=== PATIENT | male | born 1990 | race Caucasian/White ===

== ENCOUNTER 2020-08-06 02:15 | Inpatient (IN) ==
[2020-08-06] MEDS ORDERED: LORazepam 2 mg VIAL 1 ml IV PUSH ONE (02:42)
[2020-08-06] MEDS ORDERED: Lorazepam PYXIS KEY PRN (02:42)
[2020-08-06 03:03] LABS: ABS Basophils 0.1 10^3/ul (0-0.2); ABS Monocytes 1.5 10^3/ul (0-0.8); ABS Neutrophils 25.7 10^3/ul (1.5-7.7); Hematocrit 44 % (42-52); Hemoglobin 16.1 g/dL (14.0-18.0); Lymphocyte % 6.8 %; Mean Corpuscular HGB Conc 36 g/dL (31-36); Mean Corpuscular Hemoglobin 33 pg (27-31); Mean Corpuscular Volume 90 fL (80-94); Platelet Count 411 10^3/uL (150-450); Red Cell Distribution Width 14 % (10-15); White Blood Count 29.2 10^3/uL (3.5-10.8)
[2020-08-06] MEDS: NS 0.9% 1000 ml BAG 2,000 ML IV ONE (03:03)
[2020-08-06 03:37] LABS: ALT 23 U/L (7-52); AST 25 U/L (13-39); Acetaminophen < 15 mcg/mL; Albumin 4.1 g/dL (3.2-5.2); Alcohol, S 311 mg/dL (<10); Alkaline Phosphatase 127 U/L (34-104); Anion Gap 20 mmol/L (2-11); BUN/Creatinine Ratio 19.8 (8-20); Blood Urea Nitrogen 16 mg/dL (6-24); CO2 Carbon Dioxide 22 mmol/L (22-32); Calcium 9.1 mg/dL (8.6-10.3); Chloride 95 mmol/L (101-111); EGFR African American 133.6 (>60); EGFR Non-African American 110.4 (>60); Glucose 119 mg/dL (70-100); Potassium 4.1 mmol/L (3.5-5.0); Salicylate < 2.50 mg/dL (<30); Sodium 137 mmol/L (135-145); Total Protein 8.1 g/dL (6.4-8.9)
[2020-08-06 03:53] LABS: TSH Ultra Thyroid Stim Horm 1.93 mcIU/mL (0.34-5.60)
[2020-08-06] MEDS ORDERED: Clindamycin 600 MG/D5W BAG 600 MG/50 ML BAG IV ONE (03:57)
[2020-08-06] MEDS ORDERED: metroNIDAZOLE IV 500 MG/100ML 500 MG/100 ML BAG IVPB SCH (04:00)
[2020-08-06] MEDS ORDERED: Thiamine 100 MG/ML 2 ml VIAL (200 mg) IM ONE (04:01)
[2020-08-06] MEDS ORDERED: Pantoprazole VIAL 40 MG VIAL IV ONE (05:06)
[2020-08-06 07:02] LABS: HIV 4th Generation Nonreactive (Nonreactive)
[2020-08-06 07:17] LABS: Folate 6.81 ng/mL (>3.99)
[2020-08-06] MEDS: NS 0.9% 1000 ml BAG 1,000 ML IV SCH ×2 (09:18→21:25)
[2020-08-06 10:02] LABS: Urine Appearance Clear; Urine Bilirubin Negative (Negative); Urine Blood Negative (Negative); Urine Color Yellow; Urine Glucose Negative (Negative); Urine Ketones Trace (Negative); Urine Nitrite Negative (Negative); Urine Protein 1+(30 mg/dL) (Negative); Urine Urobilinogen Negative (Negative)
[2020-08-06] MEDS: Nicotine PATCH 21 MG/24 HR PATCH TRANSDERM SCH (10:06)
[2020-08-06 10:13] LABS: Urine Benzodiazepine Screen None Detected (None Detect); Urine Cannabinoids Screen Presumptive Positive (None Detect); Urine Opiates Screen None Detected (None Detect)
[2020-08-06 10:27] LABS: Hepatitis B Surface Antigen Nonreactive (Nonreactive)
[2020-08-06 10:29] LABS: Urine Bacteria Absent (Absent); Urine Red Blood Cell Trace(0-2/hpf) (Absent); Urine Squamous Epithelial Cell Present (Absent); Urine White Blood Cell Trace(0-5/hpf) (Absent)
[2020-08-06 10:32] LABS: Hepatitis A Ab IgM Negative (Negative)
[2020-08-06 10:33] LABS: Hepatitis B Core IgM Nonreactive (Nonreactive)
[2020-08-06] MEDS: Multivitamins/Minerals TAB PO SCH (12:13)
[2020-08-06] MEDS: Ondansetron 4 mg VIAL 2 MG/ML 2 ml VIAL IV PRN ×3 (12:13→20:08)
[2020-08-06] MEDS: Clindamycin 600 MG/D5W BAG 600 MG/50 ML BAG IV SCH ×2 (12:42→21:25)
[2020-08-06] MEDS: Buprenorp/Nalox 4-1 MG FILM SL FILM SCH ×2 (15:04→20:08)
[2020-08-06 15:52] LABS: Hepatitis C Antibody Reactive (Negative)
[2020-08-06] MEDS: Pantoprazole VIAL 40 MG VIAL IV SCH (20:08)
[2020-08-07] MEDS: Clindamycin 600 MG/D5W BAG 600 MG/50 ML BAG IV SCH ×3 (06:02→20:05)
[2020-08-07] MEDS: Buprenorp/Nalox 4-1 MG FILM SL FILM SCH ×3 (06:02→20:16)
[2020-08-07 06:30] LABS: ABS Lymphocytes 2.5 10^3/ul (1.0-4.8); ABS Neutrophils 7.1 10^3/ul (1.5-7.7); Eosinophil % 0.4 %; Hematocrit 40 % (42-52); Hemoglobin 13.7 g/dL (14.0-18.0); Lymphocyte % 23.4 %; Mean Corpuscular HGB Conc 34 g/dL (31-36); Mean Corpuscular Hemoglobin 31 pg (27-31); Mean Corpuscular Volume 92 fL (80-94); Nucleated Red Blood Cells % 0.1; Platelet Count 238 10^3/uL (150-450); Red Cell Distribution Width 14 % (10-15); White Blood Count 10.7 10^3/uL (3.5-10.8)
[2020-08-07 06:46] LABS: Albumin 3.5 g/dL (3.2-5.2); Albumin/Globulin Ratio 1.1 (1-3); BUN/Creatinine Ratio 19.7 (8-20); Calcium 8.8 mg/dL (8.6-10.3); EGFR African American 143.8 (>60); EGFR Non-African American 118.9 (>60); Globulin 3.3 g/dL (2-4); Potassium 3.8 mmol/L (3.5-5.0); Total Bilirubin 0.9 mg/dL (0.2-1.0); Total Protein 6.8 g/dL (6.4-8.9)
[2020-08-07] MEDS: Nicotine PATCH 21 MG/24 HR PATCH TRANSDERM SCH (08:40)
[2020-08-07] MEDS: Multivitamins/Minerals TAB PO SCH (08:41)
[2020-08-07] MEDS: NS 0.9% 1000 ml BAG 1,000 ML IV SCH ×2 (08:41→21:04)
[2020-08-07] MEDS: Ondansetron 4 mg VIAL 2 MG/ML 2 ml VIAL IV PRN ×2 (08:41→13:46)
[2020-08-07] MEDS: Pantoprazole VIAL 40 MG VIAL IV SCH (20:05)
[2020-08-08] MEDS: Clindamycin 600 MG/D5W BAG 600 MG/50 ML BAG IV SCH ×3 (04:23→21:14)
[2020-08-08] MEDS: Buprenorp/Nalox 4-1 MG FILM SL FILM SCH ×3 (06:09→21:15)
[2020-08-08 06:32] LABS: ABS Eosinophils 0.1 10^3/ul (0-0.6); ABS Lymphocytes 2.2 10^3/ul (1.0-4.8); ABS Monocytes 0.7 10^3/ul (0-0.8); ABS Neutrophils 5.1 10^3/ul (1.5-7.7); Eosinophil % 1.6 %; Hematocrit 37 % (42-52); Hemoglobin 12.8 g/dL (14.0-18.0); Lymphocyte % 26.6 %; Mean Corpuscular HGB Conc 34 g/dL (31-36); Mean Corpuscular Hemoglobin 32 pg (27-31); Mean Corpuscular Volume 92 fL (80-94); Mean Platelet Volume 7.4 fL (7.4-10.4); Platelet Count 199 10^3/uL (150-450); Red Blood Count 4.06 10^6 /uL (4.18-5.48); Red Cell Distribution Width 14 % (10-15); White Blood Count 8.1 10^3/uL (3.5-10.8)
[2020-08-08 06:50] LABS: Albumin 3.5 g/dL (3.2-5.2); Albumin/Globulin Ratio 1.1 (1-3); BUN/Creatinine Ratio 15.1 (8-20); Calcium 8.7 mg/dL (8.6-10.3); EGFR African American 150.7 (>60); EGFR Non-African American 124.5 (>60); Globulin 3.2 g/dL (2-4); Potassium 3.7 mmol/L (3.5-5.0); Total Bilirubin 0.9 mg/dL (0.2-1.0); Total Protein 6.7 g/dL (6.4-8.9)
[2020-08-08] MEDS: Nicotine PATCH 21 MG/24 HR PATCH TRANSDERM SCH (09:07)
[2020-08-08] MEDS: Multivitamins/Minerals TAB PO SCH (09:08)
[2020-08-08] MEDS: NS 0.9% 1000 ml BAG 1,000 ML IV SCH ×2 (11:37→23:18)
[2020-08-08] MEDS: Pantoprazole VIAL 40 MG VIAL IV SCH (21:14)
[2020-08-09] MEDS: Nicotine PATCH 21 MG/24 HR PATCH TRANSDERM SCH ×2 (04:16→07:07)
[2020-08-09] MEDS: Clindamycin 600 MG/D5W BAG 600 MG/50 ML BAG IV SCH ×3 (05:17→19:51)
[2020-08-09 05:49] LABS: ABS Eosinophils 0.2 10^3/ul (0-0.6); ABS Lymphocytes 2.2 10^3/ul (1.0-4.8); ABS Monocytes 0.7 10^3/ul (0-0.8); Eosinophil % 1.9 %; Hematocrit 38 % (42-52); Hemoglobin 13.1 g/dL (14.0-18.0); Lymphocyte % 24.6 %; Mean Corpuscular HGB Conc 35 g/dL (31-36); Mean Corpuscular Hemoglobin 31 pg (27-31); Mean Corpuscular Volume 91 fL (80-94); Mean Platelet Volume 7.5 fL (7.4-10.4); Platelet Count 190 10^3/uL (150-450); Red Blood Count 4.18 10^6 /uL (4.18-5.48); Red Cell Distribution Width 13 % (10-15); White Blood Count 9.2 10^3/uL (3.5-10.8)
[2020-08-09] MEDS: Buprenorp/Nalox 4-1 MG FILM SL FILM SCH ×3 (06:19→21:35)
[2020-08-09 06:31] LABS: BUN/Creatinine Ratio 11.1 (8-20); Calcium 8.7 mg/dL (8.6-10.3); EGFR African American 153.1 (>60); EGFR Non-African American 126.5 (>60); Potassium 3.5 mmol/L (3.5-5.0)
[2020-08-09] MEDS: NS 0.9% 1000 ml BAG 1,000 ML IV SCH (09:02)
[2020-08-09] MEDS: Multivitamins/Minerals TAB PO SCH (09:04)
[2020-08-09] MEDS: Pantoprazole VIAL 40 MG VIAL IV SCH (19:51)
[2020-08-10] MEDS: Clindamycin 600 MG/D5W BAG 600 MG/50 ML BAG IV SCH ×3 (05:15→20:48)
[2020-08-10] MEDS: Buprenorp/Nalox 4-1 MG FILM SL FILM SCH ×3 (05:15→20:47)
[2020-08-10] MEDS: Multivitamins/Minerals TAB PO SCH (08:57)
[2020-08-10] MEDS: Nicotine PATCH 21 MG/24 HR PATCH TRANSDERM SCH (08:57)
[2020-08-10] MEDS: Pantoprazole VIAL 40 MG VIAL IV SCH (20:48)
[2020-08-11] MEDS: Clindamycin 600 MG/D5W BAG 600 MG/50 ML BAG IV SCH (04:41)
[2020-08-11] MEDS: Nicotine PATCH 21 MG/24 HR PATCH TRANSDERM SCH (10:46)
[2020-08-11] MEDS: Multivitamins/Minerals TAB PO SCH (10:47)
[2020-08-11] MEDS: Buprenorp/Nalox 4-1 MG FILM SL FILM SCH (10:47)
[2020-08-11 13:18] VITALS: BP 132/92
[2020-08-13 12:57] LABS: Buprenorphine 83.5 ng/mL; Norbuprenorphine 482.2 ng/mL
== END 2020-08-11 14:00 | disposition home or self-care (01) | DRG 720 ==
LOC: ED 02:15 → MEDTELE 05:30
PROVIDERS: ADMIT Internal Medicine; ATTEND Internal Medicine